=== PATIENT | male | born 1985 | race Caucasian/White ===

== ENCOUNTER 2023-10-17 10:45 | Day surgery (SDC) | payer BC, SELFPAY ==
[2023-10-17] VITALS (12 sets, daily range): BP systolic 113–150; BP diastolic 54–87; PULSE 60–82; RESP 12–20; TEMP 36.2–36.9; O2SAT 95–100
--- NOTE | ~2023-10-17 | XR_ITS ---
EXAMINATION: XR retrograde pyelo w/stent RT DATE: 10/17/2023 17:00 THERAPIST PHYSICAL INDICATION: RIGHT STENT . TECHNIQUE: 10 fluoroscopic image of the right abdomen and pelvis were obtained during right retrograd e pyelography with stent placement performed by the surgeon. I was not present in the operating room. Fluoroscopy exposure time was 18.9 seconds. Air Kerma 6.34 mGy. DAP [id number] mGym2. COMPARISON: CT abdomen pelvis 10/17/2023 FINDINGS: Wire access into the right collecting system which is mildly dilated. Post deployment, the proximal c oil of the ureteral stent projects over the right renal pelvis. Distal coil not imaged. IMPRESSION: Fluoroscopic documentation of right retrograde pyelography with stent placement. Please refer to the operative note for complete procedural details . Reviewed, dictated and finalized at location K. APIST PHYSICAL IMPRESSION: Fluoroscopic documentation of right retrograde pyelography with stent placement . Please refer to the operative note for complete procedural details .
--- NOTE | ~2023-10-17 | CT_ITS ---
EXAMINATION: CT abdomen pelvis w con DATE: 10/17/2023 14:56 INDICATION: Sudden onset of right flank pain, difficulty voiding. Fever. TECHNIQUE: Computed tomography (CT) of the abdomen and pelvis was performed with 100 CC Omnipaque 350 intravenous contrast. Automated exposure control and iterative reconstruction technique were employe d. Exam dose: 528.15 mGy-cm total exam DLP. COMPARISON: None. FINDINGS: The lung bases are clear. Normal heart size. No pericardial or pleural effusion. There is an approximately 4 mm distal right ureteral calculus with proximal mild right hydroureterone phrosis, mild perinephric fluid and periureteral fluid consistent with pyelosinus extravasation. No other urinary tract calculus. No left hydroureteronephrosis. Urinary bladder is relatively evacuated, unremarkable. Normal prostate gland size. The liver, gallbladder, bile ducts, pancreas, pancreatic duct, spleen and adrenal glands are unremark able. No renal mass lesion is noted. Normal caliber of the abdominal aorta. No intraperitoneal or retroperitoneal or pelvic mass lesion or adenopathy or ascites. No bowel obstruction, bowel wall thickening, pneumatosis or intraperitoneal free air. Normal appendix . Included skeletal structures are unremarkable. IMPRESSION: 4 mm distal right ureteral calculus with mild right hydroureteronephrosis, pyelosinus ex travasation Reviewed, dictated and finalized at [facility]. Reviewed, dictated and finalized at location B. ER HELPER IMPRESSION: 4 mm distal right ureteral calculus with mild right hydroureterone phrosis, pyelosinus extravasation
[2023-10-17 13:59] LABS: Basophils Percent Auto 0.4 % (0.2-1.2); Eosinophils Percent Auto 0.1 % (0-4.4); Hemoglobin 14.3 g/dL (14.0-18.0); Immature Granulocyte Absolute 0.07 K/mm3 (0.00-0.031); Immature Granulocyte Percent A 0.7 % (0-0.5); Lymphocytes Absolute Auto 0.74 K/mm3 (0.9-3.2); Lymphocytes Percent Auto 7.1 % (18.3-44.2); Mean Corpuscular HGB Conc 33.3 g/dl (32-36); Mean Corpuscular Hemoglobin 29.7 pg (26-34); Mean Corpuscular Volume 89.4 fl (80-100); Mean Platelet Volume 8.7 fl (7.4-10.4); Monocytes Absolute Auto 0.5 K/mm3 (0.1-0.6); Monocytes Percent Auto 4.8 % (2.6-8.5); Neutrophils Percent Auto 86.9 % (45.5-73.1); Platelet Count Result 355 k/mm3 (150-375); Red Blood Count 4.81 M/mm3 (4.6-6.20); Red Cell Distribution Width 12.3 % (11.5-14.5); White Blood Count 10.4 K/mm3 (4.5-10.0)
[2023-10-17 14:11] LABS: Alanine Aminotransferase 27 U/L (6-50); Albumin Level 4.5 g/dL (3.5-5.1); Alkaline Phosphatase 77 U/L (38-126); Anion Gap 12 mmol/L (8-16); Aspartate Amino Transferase 26 U/L (17-59); Bilirubin,Total 0.6 mg/dL (0.2-1.3); Blood Urea Nitrogen 13 mg/dL (9-20); Calcium 9.7 mg/dL (8.4-10.2); Carbon Dioxide 25 mmol/L (22-30); Chloride 100 mmol/L (98-107); Estimated Glomerular Filt Rate > 60; Glucose 105 mg/dL (65-110); Potassium 4.6 mmol/L (3.4-5.0); Sodium 137 mmol/L (137-145)
--- NOTE | 2023-10-17 14:28 | ED.MALEGU ---
HPI - Male Genitourinary General Chief complaint: Urogenital-Male Stated complaint: flank pain/right side pain Time Seen by Provider: 10/17/23 14:21 History of Present Illness HPI Narrative: Patient is a 38 year old male with no PMH here with flank pain and difficulty urinating. Patient notes that he woke up around 4:30 am he woke up with right sided flank pain which seems to rap around to the front of his abdomen. He urinated at that time and went back to sleep. He woke up again and the next attempt to urinate he seemed to have difficulty initiating his urinary stream and also felt like he incompletely voided. He has had consistent pain on the right side. No dysuria, no hematuria. He has no history of UTI or nephrolithiasis. He denies fever, has had associated chills. Related Data Allergies Allergy/AdvReac Type Severity Reaction Status Date / Time No Known Allergies Allergy Verified 10/17/23 16:34 [facility] Past Medical History Medical History (Updated 10/17/23 @ 16:41 by Mitchell Rea MD) Overweight Surgical History Surgical History (Updated 10/17/23 @ 16:40 by Kristian Stratton MD) H/O nasal septoplasty Exam Narrative: GENERAL: In no acute distress. Uncomfortable appearing. HEAD: Normocephalic, atraumatic. EYES: PERRLA and EOMI. ENT: Nares clear. Mucous membranes moist. NECK: Supple. CHEST: Clear to auscultation. No respiratory distress. HEART: Regular rate and rhythm. Normal peripheral pulses. ABDOMEN: Soft, nontender, nondistended. Mild R CVA tenderness. EXTREMITIES: Normal range of motion. No edema. SKIN: Warm, dry, no rash. NEURO: No focal deficits. Alert and oriented x3. PSYCH: Normal mood and affect. Course Course Emergency Course: Chart review performed. Patient here with flank pain and difficulty urinating since this AM. Triage vitals grossly normal. No prior visits. Patient seen evaluated, nontoxic appearing but does appear to be uncomfortable. Differentials include UTI, pyelonephritis, renal stone, acute urinary retention, other intra-abdominal infectious pathology. CT abdomen pelvis ordered in addition to pain medication, lab work, UA. Patient agreeable to plan. Lab work and imaging reviewed. WBC 10.4, Electrolytes within normal limits. Renal function within normal limits, GFR >60. UA negative for UTI. Spoke with Dr. Rea from urology, will take to OR today. Request patient has tramadol and bactrim sent to pharmacy for discharge. Patient updated on plan of care. Agreeable. Continued to advise NPO. Last PO intake was a granola bar at 10:30 AM. Patient to OR with Dr. Rea of urology. Vital Signs Vital signs: Vital Signs Temperature 97.7 F 10/17/23 11:12 Pulse Rate 67 10/17/23 11:12 Respiratory Rate 18 10/17/23 11:12 Blood Pressure 143/79 H 10/17/23 11:12 Pulse Oximetry 98 10/17/23 11:12 Oxygen Delivery Room Air 10/17/23 11:12 Temperature 97.2 F L 10/17/23 17:20 Pulse Rate 81 10/17/23 17:50 Respiratory Rate 20 10/17/23 17:50 Blood Pressure 113/63 10/17/23 17:50 Pulse Oximetry 98 10/17/23 17:50 Oxygen Delivery Room Air 10/17/23 17:50 Oxygen Flow Rate 6 10/17/23 17:20 MDM - Male Genitourinary Lab Data 10/17/23 13:48 10/17/23 13:48 Labs: Lab Results 10/17/23 10/17/23 Range/Units 13:48 14:40 WBC 10.4 H (4.5-10.0) K/mm3 RBC 4.81 (4.6-6.20) M/mm3 Hgb 14.3 (14.0-18.0) g/dL Hct 43.0 (42.0-52.0) % MCV 89.4 (80-100) fl MCH 29.7 (26-34) pg MCHC 33.3 (32-36) g/dl RDW 12.3 (11.5-14.5) % Plt Count 355 (150-375) k/mm3 MPV 8.7 (7.4-10.4) fl Immature Gran % (Auto) 0.7 H (0-0.5) % Neut % (Auto) 86.9 H (45.5-73.1) % Lymph % (Auto) 7.1 L (18.3-44.2) % [place] % (Auto) 4.8 (2.6-8.5) % Eos % (Auto) 0.1 (0-4.4) % Baso % (Auto) 0.4 (0.2-1.2) % Lymph # (Auto) 0.74 L (0.9-3.2) K/mm3 [place] # (Auto) 0.5 (0.1-0.6) K/mm3 Eos # (Auto
[2023-10-17] MEDS: MORPHINE SULFATE (*CRX) 4 MG/ML INJ IV PUSH (14:42)
[2023-10-17] MEDS: ONDANSETRON INJ 4 MG/2 ML VIAL IV PUSH (14:42)
[2023-10-17 14:53] LABS: Add Urine Microscopic? YES; Appearance Urine Clear (Clear); Bacteria Urine None Seen /hpf; Bilirubin Urine Negative (Negative); Blood Urine Trace (Negative); Color Urine Yellow (Yellow); Glucose Urine UA Negative (Negative); Ketones Urine 2+ mg/dL (Negative); Leukocyte Esterase Ur Negative LEU/UL (Negative); Nitrate Urine Negative (Negative); Non Pathogenic Casts 0-2; Protein Urine Negative (Negative); RBC Urine 0-2 /hpf (0-2); Specific Grav Ur 1.029 (1.001-1.035); Squamous Epithelial Cell Urine None seen /hpf (Few); Urobilinogen Urine 0.2 mg/dL (<2.0); WBC Urine 0-5 /hpf; pH Urine 5.5 (5.0-9.0)
[2023-10-17] MEDS: LACTATED RINGERS 1,000 ML 999 ML IV CONT (15:04)
[2023-10-17] MEDS: HYDROmorphone HCL INJ (*CRX) 1 MG/ML SYR IV PUSH (16:04)
[2023-10-17] MEDS: LACTATED RINGERS 1,000 ML 30 ML IV CONT (16:30)
--- NOTE | 2023-10-17 16:39 | PM.IMHP ---
H&P: HPI History of Present Illness Date/Time: 10/17/23 16:39 Chief Complaint: 4 mm obstructing right ureteral calculus with pyelosinus extravasation Narrative: 38-year-old male present to the emergency room with right flank pain. CT scan evaluation revealed a 4 mm distal right ureteral stone with pyelosinus extravasation. [place] [address]. Urinalysis is negative. Emergency room was having difficult time controlling his pain. He denies any prior history of stones. Will proceed with cystoscopy, retrograde pyelogram, right ureteroscopy with stone extraction, possible laser, stent placement today Review of Systems Review of Systems: All systems reviewed & are unremarkable except as noted in HPI and below PMFSH Past Medical History Medical History (Updated 10/17/23 @ 16:41 by Mitchell Rea MD) Overweight Surgical History Surgical History (Updated 10/17/23 @ 16:40 by Kristian Stratton MD) H/O nasal septoplasty Meds Home Medications and Allergies Home Medications Medication Instructions Recorded Confirmed Type sulfamethoxazole 800 1 tablet PO Q12H 8 days #16 tabs 10/17/23 Rx mg-trimethoprim 160 mg tablet (Bactrim DS) tramadol 50 mg tablet 50 mg PO Q6H PRN pain 3 days #20 10/17/23 Rx tabs Allergies Allergy/AdvReac Type Severity Reaction Status Date / Time No Known Allergies Allergy Verified 10/17/23 16:34 Vital Signs Vital Signs - 24 hr 10/17/23 11:12 10/17/23 13:50 10/17/23 15:41 Temperature 36.5 C Pulse Rate 67 60 Respiratory Rate 18 18 Blood Pressure 143/79 H 135/70 Pulse Oximetry 98 100 97 Oxygen Delivery Room Air 10/17/23 15:45 10/17/23 15:46 10/17/23 16:18 Temperature Pulse Rate 70 Respiratory Rate 18 Blood Pressure 138/80 150/70 H Pulse Oximetry 98 98 99 Oxygen Delivery Exam Const: General: cooperative; No comfortable Eyes: General: appearance normal, both eyes and all related structures Chest: Chest palpation & inspection: normal inspection of the chest Resp: Effort & Inspection: normal respiratory effort Cardio: Rhythm: regular rhythm H&P: Results Labs Labs: Short CBC 10/17/23 Range/Units 13:48 WBC 10.4 H (4.5-10.0) K/mm3 Hgb 14.3 (14.0-18.0) g/dL Hct 43.0 (42.0-52.0) % Plt Count 355 (150-375) k/mm3 BMP 10/17/23 13:48 Sodium 137 Potassium 4.6 Chloride 100 Carbon Dioxide 25 BUN 13 Creatinine 1.20 Glucose 105 Calcium 9.7 Liver Function 10/17/23 Range/Units 13:48 Total Bilirubin 0.6 (0.2-1.3) mg/dL AST 26 (17-59) U/L ALT 27 (6-50) U/L Alkaline Phosphatase 77 (38-126) U/L Albumin 4.5 (3.5-5.1) g/dL Urine 10/17/23 Range/Units 14:40 Urine Color Yellow (Yellow) Urine Appearance Clear (Clear) Urine pH 5.5 (5.0-9.0) Ur Specific [place] 1.029 (1.001-1.035) Urine Protein Negative (Negative) mg/dL Urine Glucose (UA) Negative (Negative) mg/dL Assessment and Plan Assessment and plan (1) Right ureteral calculus: Code(s): N20.1 - Calculus of ureter Status: Acute Assessment and Plan: proceed with cystoscopy, right retrograde pyelogram, right ureteroscopy with stone extraction, possible laser, stent placement
--- NOTE | 2023-10-17 16:40 | WPDANESEPPF ---
Anes - Initial Pre Proc Eval Procedure: Operation Date: 10/17/23 16:30 Proposed Procedures p Cystoscopy,Right Ureteroscopy,Right Retrograde Pyelogram,Right Stone Extraction,Possible Stent Placement,Possible Holmium Laser - Mitchell Rea MD Date/Time: 10/17/23 16:40 Surgeon: Mitchell Rea MD Pre Op Diagnosis: flank pain/right side pain Patient Data Age: 38 Gender: M Height: Weight: 86 kg Last Vital Signs Temp 36.5 C 10/17/23 11:12 Pulse 70 10/17/23 16:18 Resp 18 10/17/23 16:18 BP 150/70 H 10/17/23 16:18 Pulse Ox 99 10/17/23 16:18 O2 Del Method Room Air 10/17/23 11:12 Allergies Allergy/AdvReac Type Severity Reaction Status Date / Time No Known Allergies Allergy Verified 10/17/23 16:34 Home Medications Medication Instructions Recorded Confirmed Type sulfamethoxazole 800 1 tablet PO Q12H 8 days #16 tabs 10/17/23 Rx mg-trimethoprim 160 mg tablet (Bactrim DS) tramadol 50 mg tablet 50 mg PO Q6H PRN pain 3 days #20 10/17/23 Rx tabs Laboratory Tests 10/17/23 10/17/23 13:48 14:40 WBC 10.4 H K/mm3 (4.5-10.0) RBC 4.81 M/mm3 (4.6-6.20) Hgb 14.3 g/dL (14.0-18.0) Hct 43.0 % (42.0-52.0) MCV 89.4 fl (80-100) MCH 29.7 pg (26-34) MCHC 33.3 g/dl (32-36) RDW 12.3 % (11.5-14.5) Plt Count 355 k/mm3 (150-375) MPV 8.7 fl (7.4-10.4) Immature Gran % (Auto) 0.7 H % (0-0.5) Neut % (Auto) 86.9 H % (45.5-73.1) Lymph % (Auto) 7.1 L % (18.3-44.2) [place] % (Auto) 4.8 % (2.6-8.5) Eos % (Auto) 0.1 % (0-4.4) Baso % (Auto) 0.4 % (0.2-1.2) Lymph # (Auto) 0.74 L K/mm3 (0.9-3.2) [place] # (Auto) 0.5 K/mm3 (0.1-0.6) Eos # (Auto) 0.0 K/mm3 (0-0.3) Baso # (Auto) 0.0 K/mm3 (0.0-0.1) Abs Immat Gran (auto) 0.07 H K/mm3 (0.00-0.031) Absolute Neuts (auto) 9.0 H K/mm3 (1.3-6.7) Absolute Nucleated RBC 0.0 K/mm3 (0.0-0.012) Nucleated RBC % 0.0 % (0.0-0.2) Sodium 137 mmol/L (137-145) Potassium 4.6 mmol/L (3.4-5.0) Chloride 100 mmol/L (98-107) Carbon Dioxide 25 mmol/L (22-30) Anion Gap 12 mmol/L (8-16) BUN 13 mg/dL (9-20) Creatinine 1.20 mg/dL (0.7-1.3) Estim Creat Clear Calc Not Reportable Estimated GFR > 60 (59 - ) Glucose 105 mg/dL (65-110) Calcium 9.7 mg/dL (8.4-10.2) Total Bilirubin 0.6 mg/dL (0.2-1.3) AST 26 U/L (17-59) ALT 27 U/L (6-50) Alkaline Phosphatase 77 U/L (38-126) Total Protein 8.0 g/dL (6.3-8.2) Albumin 4.5 g/dL (3.5-5.1) Urine Color Yellow (Yellow) Urine Appearance Clear (Clear) Urine pH 5.5 (5.0-9.0) Ur Specific [place] 1.029 (1.001-1.035) Urine Protein Negative mg/dL (Negative) Urine Glucose (UA) Negative mg/dL (Negative) Urine Ketones 2+ H mg/dL (Negative) Ur Blood (Man) Trace (Negative) Urine Nitrate Negative (Negative) Urine Bilirubin Negative (Negative) Urine Urobilinogen 0.2 mg/dL (<2.0) Leukocyte Esterase Rfl Negative NIRMAL/UL (Negative) Urine RBC 0-2 /hpf (0-2) Urine WBC 0-5 /hpf Ur Squamous Epith Cells None seen /hpf (Few) Urine Bacteria None seen /hpf Urine Casts 0-2 Patient hx anesthesia problems: none Family hx anesthesia problems: none Results Review: All pre-operative results and documents have been reviewed as part of the pre-operative evaluation. PMFSH Past Medical History Medical History (Updated 10/17/23 @ 16:40 by Kristian Stratton MD) Overweight Surgical History Surgical History (Updated 10/17/23 @ 16:40 by Kristian Stratton MD) H/O nasal septoplasty Anes - Eval Final PreProcedure Day of Procedure 10/17/23 16
--- NOTE | 2023-10-17 16:42 | WPDHPUPDATE1 ---
History and Physical Update Update Date/Time: 10/17/23 16:42 History and Physical has been reviewed, including an updated exam of the patient. There are NO changes in the patient's condition. Risks, benefits, and alternatives have been discussed and questions answered. Patient agrees to proceed with procedure. proceed with cystoscopy, right retrograde pyelogram, right ureteroscopy with stone extraction, possible laser. , stent placement
[2023-10-17] MEDS: ceFAZolin SODIUM 1 GM VIAL 2 GM IV PUSH (16:50)
[2023-10-17] MEDS: LIDOCAINE HCL 2% GEL UROJET 10 ML PKG MUCOUS MEM (17:05)
--- NOTE | 2023-10-17 17:15 | P.OP_ITS ---
Procedure Note - Detailed Date of Procedure 10/17/23 Pre-op Diagnosis flank pain/right side pain, right ureteral calculus 4 mm Post-op Diagnosis Same Procedure Performed Cystoscopy, right retrograde pyelogram, right ureteroscopy with stone extraction, right ureteral stent placement 4.8 [place] contour Surgeon Mitchell Rea MD Anesthesia General Description of Procedure Patient is taken to the operative suite correctly identified. Once anesthesia was obtained he was placed in dorsal lithotomy position and prepped and draped usual sterile fashion. Nineteen [place] scope inserted in the bladder direct vision. There were no urethral strictures. Bladder without tumors. Right ureteral orifice was cannulated with a guidewire. I dilated the orifice with an 8/10 dilator. Rigid ureteral scope was then inserted. Stone was visualized. Using escape basket was retrieved in its entirety. Pyelogram was then performed confirm placement the stent in the renal pelvis. 4.8 [place] contour stent was then placed with the proximal end coiled in the right renal pelvis and the distal end in the bladder. Bladder was drained. 2% viscous lidocaine was inserted into the urethra the patient is taken recovery stable condition. He will follow-up in a week's time for stent removal. This completes dictation on patient. Please send a copy of op note to my office. Estimated Blood Loss 0 Drains Yes Packing No Pathology Yes Complications No immediate complications Condition Stable Disposition PACU
== END 2023-10-17 18:50 | disposition home or self-care (01) ==
LOC: ANHED 16:03 → ANHSURGERY 16:10
PROVIDERS: Emergency Provider Student in an Organized Health Care Education/Training Program; Visit Provider Urology
PROC: (CPT 52352; principal; 2023-10-17 16:30)
DX: N13.2 Hydronephrosis with renal and ureteral calculous obstruction (principal); N13.8 Other obstructive and reflux uropathy
CPT/HCPCS: 52332; 52352; 36415; 74177; 74420; 80053; 81001; 82365; 85025; 88300; 96361; 96374; 96375; 99285; C1769; C2617; J0690; J1170; J2250; J2270; J2405; J2704; J7120; Q9966; Q9967